=== PATIENT | female | born 1995 | race Caucasian/White ===

== ENCOUNTER 2018-02-19 08:52 | Inpatient (IN) | payer OTHER ==
[2018-02-25] MEDS ORDERED: Bupivacaine/Epinephrine 0.25% 30 ML VIAL ONE (10:00)
[2018-02-25 21:54] VITALS: BMI 31.6
[2018-02-25] MEDS ORDERED: Acetaminophen/Codeine 30-300mg Tablet PO PRN ×2 (22:15)
[2018-02-25] MEDS: Lactated Ringer's 1,000 ML IV SCH (22:15)
[2018-02-25] MEDS ORDERED: Ibuprofen 800 MG TAB PO PRN (22:15)
[2018-02-25] MEDS ORDERED: Meperidine HCl/PF 25 MG/ML VIAL IM/IV PRN (22:15)
[2018-02-25] MEDS ORDERED: NS w/ Oxytocin 10 units 500 ML IV SCH (22:15)
[2018-02-25] MEDS ORDERED: NS / Oxytocin 40 units/1000ml 1,000 ML IV PRN (22:15)
[2018-02-25] MEDS ORDERED: Lidocaine 1% (PF) 30 ML VIAL SC PRN (22:15)
[2018-02-25] MEDS ORDERED: Promethazine HCl 25 MG/ML VIAL IM PRN (22:15)
[2018-02-25] MEDS ORDERED: Acetaminophen 500 MG TAB PO PRN (22:15)
[2018-02-25] MEDS ORDERED: Ondansetron HCl/PF 4 MG/2 ML Vial IVP PRN (22:15)
[2018-02-25] MEDS ORDERED: Misoprostol 100 MCG TAB VAG SCH (22:45)
[2018-02-25 22:53] LABS: Hemoglobin 10.4 g/dL (12.0-16.0); Mean Corpuscular HGB CONC 34.8 g/dL (32.0-36.0); Mean Corpuscular Hemoglobin 29.6 pg (27.0-31.0); Mean Corpuscular Volume 84.8 fL (78.0-98.0); Mean Platelet Volume 8.3 fL (7.4-10.4); Platelet Count 265 thou/uL (130-400); RBC Distribution Width 13.5 % (11.5-14.5); Red Blood Cell (RBC) Count 3.51 mill/uL (4.20-5.40); White Blood Cell (WBC) Count 9.7 thou/uL (4.8-10.8)
[2018-02-25 23:32] LABS: HBSAg Index 0.17 S/CO (0-0.99); Hep B Surf Ag Non-Reactive S/CO (NonReactive); Syphilis Antibody Nonreactive (Nonreactive); Syphilis Antibody Index 0.03 S/CO (<1.00 Non-Reactive)
[2018-02-26] MEDS ORDERED: Misoprostol 100 MCG TAB ONE (02:11)
[2018-02-26] MEDS ORDERED: Terbutaline Sulfate 1 MG/ML VIAL ONE (02:12)
[2018-02-26] MEDS: Lactated Ringer's 1,000 ML IV SCH ×3 (03:11→15:55)
[2018-02-26] MEDS: Butorphanol Tartrate 1 MG/ML VIAL SLOW IVP PRN ×3 (04:59→11:27)
--- NOTE | 2018-02-26 07:56 | PDOC.LDHP ---
Labor and Delivery H&P Chief complaint: scheduled induction HPI: Pt is a 23yo G1 @ 41 weeks here for scheduled IOL for prolonged . care complicated by limited PNC and pt refusal of routine recommendations and care. Current gestational age (weeks): 41 Due date: 02/19/18 Dating criteria: last menstrual period, first trimester ultrasound Grav: 1 OB History Details: Pt with limited care until the third trimester Current complications: other (insuff care) Abnormal US findings: No (limited US during care) Past Medical History: none Current medications: pre-shekhar vitamins Previous surgical history: none Allergies/Adverse Reactions: Allergies Allergy/AdvReac Type Severity Reaction Status Date / Time hydrocodone [From Vicodin] Allergy Severe Verified 02/25/18 22:06 Social history: none - Physical Exam Vital signs reviewed and normal: yes General: resting, breathing through contractions Heart: RRR Lungs: CTAB Abdomen: gravid Extremeties: no edema FHT: category 1 [place] contractions every: 2 - Vaginal Exam cm dilated: 2 Effacement: 50% Station: -2 - OB Labs Blood type: B RH: negative Antibody Screen: negative HIV: negative RPR: negative HEPSAg: negative GBS: negative - Assessment L&D Assessment: medically indicated induction - Plan Plan: admit to L&D, cervical ripening, labor augmentation if indicated, informed consent obtained, anesthesia consult for pain management -: A/P: 23yo G1 @ weeks with limited care but dated by 8 week US. Pt refused Tdap and rhogam during care despite counseling and pt education. Pt was recommended [place] Balloon IOL but FOB declined on pt's behalf. Pt agreed to cytotec for cervical ripening overnight and AROM was completed at AM physical exam. FHT ressuring, continue plan of care.
[2018-02-26] MEDS ORDERED: DISCONTINUE ALL PREVIOUS NARCOTICS FS SCH (08:30)
[2018-02-26] MEDS ORDERED: Butorphanol Tartrate 1 MG/ML VIAL ONE ×2 (09:42→11:25)
[2018-02-26] MEDS: NS w/ Oxytocin 10 units 500 ML IV SCH (09:58)
[2018-02-26] MEDS: Bupivacaine 0.5% 20 ML, fentaNYL Citrate/PF 400 MCG in Sodium Chloride 0.9% 72 ML EPIDURAL SCH ×2 (12:38→19:20)
[2018-02-26] MEDS ORDERED: Lactated Ringer's 500 ML IV PRN (12:43)
[2018-02-26] MEDS ORDERED: Promethazine HCl 25 MG/ML VIAL IM PRN (12:43)
[2018-02-26] MEDS ORDERED: Acetaminophen 325 MG TAB PO PRN (12:43)
[2018-02-26] MEDS ORDERED: ePHEDrine/0.9% NaCl/PF SYRINGE 50 mg/10 ml SLOW IVP PRN (12:43)
[2018-02-26] MEDS ORDERED: Ondansetron HCl/PF 4 MG/2 ML Vial IVP PRN ×2 (12:43→23:22)
[2018-02-26] MEDS ORDERED: Naloxone HCl 0.4 mg/ml Vial IVP PRN ×2 (12:43)
[2018-02-26] MEDS ORDERED: Eucerin (Mineral Oil/Petrolatum,White) 30 gm Jar TOP PRN (12:43)
[2018-02-26] MEDS ORDERED: diphenhydrAMINE 50 MG/ML VIAL IVP PRN (12:43)
[2018-02-26] MEDS ORDERED: fentaNYL Citrate/PF 400 MCG, Bupivacaine 0.5% 20 ML in Sodium Chloride 0.9% 72 ML EPIDURAL SCH (12:45)
[2018-02-26] MEDS ORDERED: Communication Order-Pharmacy FS SCH (12:45)
[2018-02-26] MEDS: Misoprostol 100 MCG TAB VAG SCH (15:57)
--- NOTE | 2018-02-26 18:25 | PDOC.LDPN ---
Labor & Delivery Progress Note - Subjective Subjective: painful contractions - Objective Vital signs reviewed and normal: yes General: breathing through contractions Dilation: 4 Effacement: 90% Station: -1 FHT: category 1 [place] contractions every: 2 - Assessment (1) 41 weeks gestation of Code(s): Z3A.41 - 41 WEEKS GESTATION OF Current Visit: Yes Status : Acute Plan: continue plan of care
--- NOTE | 2018-02-26 20:03 | PDOC.OPDEL ---
OB Operative/Delivery Note Delivery Dr/Surgeon: Michael Pre-Delivery Diagnosis: medically indicated induction (41 weeks) Procedure/Post Delivery Dx: spontaneous vaginal delivery Weeks gestation: 41 - Findings A Sex: male - 1 min: 8 - 5 min: 9 - Additional Findings/Plan Placenta delivered: spontaneous Repaired Obstetrical Laceration: vaginal (left vaginal sidewall and bilateral labial) Estimated blood loss: 300ml Post delivery plan: routine recovery
[2018-02-26] MEDS ORDERED: NS / Oxytocin 40 units/1000ml 1,000 ML IV SCH (23:22)
[2018-02-26] MEDS ORDERED: diphenhydrAMINE 25 MG CAP PO PRN (23:22)
[2018-02-26] MEDS ORDERED: Preparation H Ointment 28 GM TUBE PR PRN (23:22)
[2018-02-26] MEDS ORDERED: Lanolin Ointment 7 GM TUBE TOP PRN (23:22)
[2018-02-26] MEDS ORDERED: Milk Of Magnesia 30 ML UDCUP PO PRN (23:22)
[2018-02-26] MEDS ORDERED: Benzocaine/Menthol 20-0.5% 60 ML CAN TOP PRN (23:22)
[2018-02-26] MEDS ORDERED: Bisacodyl 10 MG SUPP PR PRN (23:22)
[2018-02-26] MEDS ORDERED: Adacel (T-DAP) 0.5 ML VIAL IM ONE (23:22)
[2018-02-26] MEDS ORDERED: Ibuprofen 800 MG TAB PO SCH (23:45)
[2018-02-26] MEDS: Docusate Calcium (SURFAK) 240 MG CAP PO SCH (23:47)
[2018-02-26] MEDS: Ibuprofen 800 MG TAB PO SCH (23:48)
[2018-02-27 05:38] LABS: Mean Corpuscular HGB CONC 33.6 g/dL (32.0-36.0); Mean Corpuscular Hemoglobin 29.1 pg (27.0-31.0); Mean Corpuscular Volume 86.4 fL (78.0-98.0); Mean Platelet Volume 8.1 fL (7.4-10.4); Platelet Count 177 thou/uL (130-400); RBC Distribution Width 13.7 % (11.5-14.5); Red Blood Cell (RBC) Count 2.75 mill/uL (4.20-5.40); White Blood Cell (WBC) Count 16.2 thou/uL (4.8-10.8)
[2018-02-27] MEDS: NS w/ Oxytocin 10 units 500 ML IV SCH (08:03)
[2018-02-27] MEDS: Misoprostol 100 MCG TAB VAG SCH (08:03)
[2018-02-27] MEDS: Prenatal Vitamin 1 TAB PO SCH (09:12)
[2018-02-27] MEDS: Ferrous Sulfate 325 MG TAB PO SCH ×2 (09:12→17:10)
[2018-02-27] MEDS: Ibuprofen 800 MG TAB PO SCH ×3 (09:12→21:11)
[2018-02-27] MEDS: Docusate Calcium (SURFAK) 240 MG CAP PO SCH ×2 (09:19→21:10)
--- NOTE | 2018-02-27 10:24 | PDOC.PP ---
Post Progress Note Post Day #: 1 Subjective: doing well, breast feeding, min pain PO intake tolerated: yes Flatus: yes Ambulation: yes Vital Signs (12 hours) Temp Pulse Resp BP BP 02/27/18 08:30 97.7 F 69 17 117/82 02/27/18 03:40 97.5 F L 61 20 122/64 02/27/18 00:40 97.8 F 80 18 117/66 02/27/18 00:30 99.5 F 76 16 02/26/18 23:45 98.8 F 69 18 125/69 02/26/18 22:45 98.4 F 60 18 122/77 Weight Weight 196 lb - Physical Examination General: NAD Respiratory: non-labored breathing Abdominal: no distention Fundus firm & at: below umb Extremities: negative homans (B) Skin: no rash Neurological: no gross focal deficits Psychiatric: A&Ox3, normal affect Result Diagrams: 02/27/18 05:20 Additional Labs: Post Labs Blood Type A NEGATIVE 02/25/18 22:16 Hep Bs Antigen Non-Reactive S/CO (NonReactive) 02/25/18 22:16 (1) 41 weeks gestation of Code(s): Z3A.41 - 41 WEEKS GESTATION OF Status: Acute (2) Vaginal delivery Code(s): O80 - ENCOUNTER FOR FULL-TERM UNCOMPLICATED DELIVERY Status: Acute - Assessment/Plan PPD #1 doing well, continue PP care.
[2018-02-28] MEDS: Ibuprofen 800 MG TAB PO SCH (05:39)
[2018-02-28 07:59] VITALS: BP 121/77; TEMP 97.9
[2018-02-28] MEDS: Prenatal Vitamin 1 TAB PO SCH (09:05)
[2018-02-28] MEDS: Ferrous Sulfate 325 MG TAB PO SCH (09:05)
[2018-02-28] MEDS: Docusate Calcium (SURFAK) 240 MG CAP PO SCH (09:05)
--- NOTE | 2018-02-28 09:23 | PDOC.PP ---
Post Progress Note Post Day #: 2 Subjective: doing well, baby nursing well, min lochia, no symp of anemia PO intake tolerated: yes Flatus: yes Ambulation: yes Vital Signs (12 hours) Temp Pulse Resp BP 02/28/18 07:58 97.9 F 62 20 121/77 02/28/18 07:40 97.9 F 62 20 Weight Weight 196 lb - Physical Examination General: NAD Respiratory: non-labored breathing Abdominal: no distention Fundus firm & at: below umb Extremities: negative homans (B) Skin: no rash Neurological: no gross focal deficits Psychiatric: A&Ox3, normal affect Result Diagrams: 02/27/18 05:20 Additional Labs: Post Labs Blood Type A NEGATIVE 02/25/18 22:16 Hep Bs Antigen Non-Reactive S/CO (NonReactive) 02/25/18 22:16 (1) 41 weeks gestation of Code(s): Z3A.41 - 41 WEEKS GESTATION OF Status: Acute (2) Vaginal delivery Code(s): O80 - ENCOUNTER FOR FULL-TERM UNCOMPLICATED DELIVERY Status: Acute - Assessment/Plan PPD2 doing well, plan for DC today with ibuprofen PRN and iron BID.
== END 2018-02-28 12:55 | disposition home or self-care (01) | DRG 775 ==
LOC: L&D 02-25 21:06 → 3SW 02-26 22:56
PROVIDERS: ADMIT Obstetrics & Gynecology; ATTEND Obstetrics & Gynecology
PROC: 3E0P7VZ Introduction of Hormone into Female Reproductive, Via Natural or Artificial Opening (ICD-10-PCS; 2018-02-25)
PROC: 10907ZC Drainage of Amniotic Fluid, Therapeutic from Products of Conception, Via Natural or Artificial Opening (ICD-10-PCS; 2018-02-25)
PROC: 10E0XZZ Delivery of Products of Conception, External Approach (ICD-10-PCS; principal; 2018-02-26)
PROC: 0HQ9XZZ Repair Perineum Skin, External Approach (ICD-10-PCS; 2018-02-26)
PROC: 3E033VJ Introduction of Other Hormone into Peripheral Vein, Percutaneous Approach (ICD-10-PCS; 2018-02-26)
DX: O48.0 Post-term pregnancy (principal); O70.0 First degree perineal laceration during delivery; Z3A.41 41 weeks gestation of pregnancy; Z88.5 Allergy status to narcotic agent; Z37.0 Single live birth
CPT/HCPCS: 36415; 51702; 85027; 86780; 86850; 86900; 86901; 87340; J0595; J2001; J2405; J3010; J3105; J3490; J7050